=== PATIENT | female | born 1970 | race Caucasian/White ===

== ENCOUNTER 2018-10-13 17:21 | Emergency (ER) | payer MEDICAID ==
[~2018-10-13] VITALS: Ht 162.6 cm; Wt 62.1 kg
[2018-10-13 17:30] VITALS: Ht 162.6 cm; Wt 62.1 kg
[2018-10-13 19:24] VITALS: BP 111/62
== END 2018-10-13 19:24 | disposition home or self-care (01) ==
LOC: ED 17:21
DX: M71.21 Synovial cyst of popliteal space [Baker], right knee (principal); Z98.890 Other specified postprocedural states
CPT/HCPCS: Q0092

== ENCOUNTER 2020-03-03 12:12 | Emergency (ER) | payer OTHER ==
[~2020-03-03] VITALS: Ht 162.6 cm; Wt 61.7 kg
[2020-03-03 12:21] VITALS: Ht 162.6 cm; Wt 61.7 kg
[2020-03-03 13:12] VITALS: BP 105/78
== END 2020-03-03 13:12 | disposition home or self-care (01) ==
LOC: ED 12:12
DX: S39.012A Strain of muscle, fascia and tendon of lower back, initial encounter (principal); Z98.890 Other specified postprocedural states; X50.0XXA Overexertion from strenuous movement or load, initial encounter; Y93.89 Activity, other specified; Y92.89 Other specified places as the place of occurrence of the external cause; Y99.8 Other external cause status